=== PATIENT | male | born 2000 | race Caucasian/White ===

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

== ENCOUNTER 2022-01-22 16:46 | Emergency (ER) | payer OTHER, SELFPAY ==
[2022-01-22 16:59] VITALS: BP 109/67; PULSE 84; RESP 20; TEMP 36.9; O2SAT 100
--- NOTE | 2022-01-22 17:39 | ED.SKABFB ---
HPI - Skin/Abscess/Foreign Bdy General Chief complaint: Skin/Abscess/Foreign Body Stated complaint: SUNBURN Time Seen by Provider: 01/22/22 17:39 Source: patient and RN notes reviewed Mode of arrival: ambulatory Limitations: no limitations History of Present Illness HPI narrative: 21-year-old male presents with concern for sunburn and possible sun poisoning. He reports over the weekend he was sunburn and he now has a red painful rash to his nose. He denies any drainage from his nose, any other rash. He denies fever, body aches, chills, sweats. He denies intervention. complaint: rash Related Data Home Medications Medication Instructions Recorded Confirmed sulfamethoxazole 800 1 tablet PO DAILY 12/11/21 12/11/21 mg-trimethoprim 160 mg tablet Allergies Allergy/AdvReac Type Severity Reaction Status Date / Time No Known Allergies Allergy Verified 12/11/21 14:07 Review of Systems Review of Systems: CONSTITUTIONAL: Denies malaise, chills, sweats, or fever. ENT: Denies rhinorrhea, congestion, sinus pain, otalgia or sore throat. CARDIOVASCULAR: Denies chest pain, palpitations, or edema. RESPIRATORY: Denies cough or dyspnea. GASTROINTESTINAL: Denies nausea, vomiting. SKIN: Reports an uncomfortable rash to the nose MUSCULOSKELETAL: Denies myalgia. NEUROLOGIC: Denies headache. All systems reviewed & are unremarkable except as noted in HPI and below PMFSH Comments At time of signature, agree with nursing past medical, surgical, social and family history. There is no relevant family history pertinent to the presenting complaint Exam Narrative: GENERAL: Well-appearing, well-nourished, and in no acute distress. HEAD: Normocephalic, atraumatic. EYES: PERRLA, conjunctivae clear, and EOMI. ENT: Mucous membranes moist. Oropharynx without edema, erythema or lesions. TM pearly crocker with sharp light reflex NECK: Supple. No lymphadenopathy CHEST: Clear to auscultation. No respiratory distress. HEART: Regular rate and rhythm. SKIN: Warm, dry. Erythematous papular rash noted to the nose and parallel bilaterally. No fluctuation, drainage noted NEURO: Alert and oriented x3. PSYCH: Normal mood and affect Course Course Emergency Course: Patient is aware of diagnosis, understands and agrees to treatment plan. Anticipatory guidance given. Patient agrees to follow-up as directed and is aware of reasons to seek care at the emergency department. Portions of this record may have been created with voice recognition software Level of Care: Express Care Visit Vital Signs Vital signs: Vital Signs Temperature 98.5 F 01/22/22 16:59 Pulse Rate 84 01/22/22 16:59 Respiratory Rate 20 01/22/22 16:59 Blood Pressure 109/67 01/22/22 16:59 Pulse Oximetry 100 01/22/22 16:59 Temperature 98.5 F 01/22/22 16:59 Pulse Rate 84 01/22/22 16:59 Respiratory Rate 20 01/22/22 16:59 Blood Pressure 109/67 01/22/22 16:59 Pulse Oximetry 100 01/22/22 16:59 Reviewed. MDM - Skin/Abscess/Foreign Bdy MDM Narrative Medical decision making narrative: Does not appear at this time to be erythema multiforme, bullous, SJS, TEN; no evidence at this time to suggest RMSF, endocarditis or Lyme disease; patient looks well, nontoxic and is tolerating oral intake; no neurologic signs or symptoms; no headache, photophobia or neck pain; afebrile; appropriate for initial outpatient treatment; discussed the importance of follow-up, patient agrees; question, viral exanthema, contact dermatitis, allergic dermatitis, eczema, urticaria, cellulitis, soft tissue infection, abscess. No soft palate or uvula edema, no tongue, lip edema or other mucosal involvement, no respiratory compromise, no stridor, no wheezing, no wheezing, no history of syncope, no hypotension, no nausea, vomiting, or diarrhea. Instructed patient to go to nearest ER immediately for any worsening symptoms including but not limited to: fever, spreading rash, pain, sore throat
== END 2022-01-22 17:59 | disposition home or self-care (01) ==
PROVIDERS: Emergency Provider Nurse Practitioner
DX: L55.1 Sunburn of second degree (principal)
CPT/HCPCS: 99213; G0463

== ENCOUNTER 2022-01-24 21:02 | Emergency (ER) | payer OTHER, SELFPAY ==
[2022-01-24 21:06] VITALS: BP 130/73; PULSE 80; RESP 20; TEMP 36.6; O2SAT 100
--- NOTE | 2022-01-24 23:07 | ED.SKABFB ---
HPI - Skin/Abscess/Foreign Bdy General Chief complaint: Skin/Abscess/Foreign Body Stated complaint: abscess to face Time Seen by Provider: 01/24/22 21:41 History of Present Illness HPI narrative: Patient is a 21-year-old male who presents ER for evaluation of possible infection to his nose and cheek. Patient was seen a couple days ago and diagnosed with a sunburn to his nose and placed on silver sulfadiazine. Reports there has become scabbed and more red and swollen. Not particular tender. No difficulty breathing. Reports he is getting some swelling up into his eye as well. Related Data Home Medications Medication Instructions Recorded Confirmed sulfamethoxazole 800 1 tablet PO DAILY 12/11/21 12/11/21 mg-trimethoprim 160 mg tablet Allergies Allergy/AdvReac Type Severity Reaction Status Date / Time No Known Allergies Allergy Verified 12/11/21 14:07 Review of Systems Review of Systems: All systems reviewed & are unremarkable except as noted in HPI and below Constitutional: Constitutional: Denies chills and Denies fever(s) ENT: Denies nasal congestion and Denies sore throat Integumentary/Breasts: Skin/Breast: Denies pruritus, Reports erythema and Reports rash Comments: Scabbing to the nose PMFSH Past Medical History Medical History (Updated 01/24/22 @ 23:13 by Max Wakefield MD) Healthy adult male Surgical History Surgical History (Updated 01/24/22 @ 23:13 by Max Wakefield MD) No history of previous surgery Social History Social History (Updated 01/24/22 @ 23:13 by Max Wakefield MD) Smoking status: Never smoker Exam Narrative: GENERAL: Well-appearing, well-nourished, and in no acute distress. HEAD: Normocephalic, atraumatic. ENT: Nares clear, no rhinorrhea or epistaxis. Mucous membranes moist. SKIN: Warm, dry. There is erythema of the nose and left cheek with swelling of the skin and nasolabial fold. There is scabbing across the bridge of the nose and moving into the left cheek. NEURO: Alert and oriented x3. PSYCH: Normal mood and affect. Course Course Emergency Course: Patient has shown me photos on his phone with progress noted of the rash. It appears to start as little pustules and since progressed. Suspect infection related to freshwater exposure while he was at [facility]. Discussed discontinuation of silver sulfadiazine. Will treat with cephalexin and topical mupirocin. Recommend follow-up with PCP or his school nurse. He is verbalized understanding of this. Vital Signs Vital signs: Vital Signs Temperature 97.8 F 01/24/22 21:06 Pulse Rate 80 01/24/22 21:06 Respiratory Rate 20 01/24/22 21:06 Blood Pressure 130/73 01/24/22 21:06 Pulse Oximetry 100 01/24/22 21:06 Oxygen Delivery Room Air 01/24/22 21:06 Temperature 97.8 F 01/24/22 21:06 Pulse Rate 80 01/24/22 21:06 Respiratory Rate 20 01/24/22 21:06 Blood Pressure 130/73 01/24/22 21:06 Pulse Oximetry 100 01/24/22 21:06 Oxygen Delivery Room Air 01/24/22 21:06 Discharge Plan Discharge Clinical Impression: Cellulitis Patient Disposition: Home, Self-Care Condition: Stable Instructions: Cellulitis (ED) Additional Instructions: You have a skin infection of your face that was likely caused by exposure to fresh water. Take the oral antibiotic 4 times daily and apply topical antibiotic. Return the ER if your swelling is worsening, you cannot see, you have severe facial pain, you have additional concerns. Prescriptions: New cephalexin 500 mg capsule 500 mg PO Q6H 10 Days Qty: 40 0RF mupirocin 2 % ointment 1 applic topical TID Qty: 15 0RF No Action silver sulfadiazine [Silvadene] 1 % cream 1 applic topical BID Qty: 25 0RF Rx Instructions: apply a 1.5 mm thickness sulfamethoxazole-trimethoprim 800-160 mg tablet 1 tablet PO DAILY polymyxin B sulf-trimethoprim 10,000 unit- 1 mg/mL drops 1 drp RIGHT EYE Q
[2022-01-24] MEDS: CEPHALEXIN 500 MG CAPSULE PO (23:20)
== END 2022-01-24 23:23 | disposition home or self-care (01) ==
PROVIDERS: Emergency Provider Emergency Medicine
DX: L03.211 Cellulitis of face (principal)
CPT/HCPCS: 99283; A9270

== ENCOUNTER 2022-09-27 19:15 | Emergency (ER) | payer OTHER, SELFPAY ==
--- NOTE | ~2022-09-27 | XR_ITS ---
EXAMINATION: XR wrist RT min 3V DATE: 09/27/2022 21:03 INDICATION: Right wrist pain and swelling. TECHNIQUE: 4 views of right wrist were obtained. COMPARISON: None. FINDINGS: Bone alignment is normal. No fracture. Joint spaces are well maintained. IMPRESSION: 1. Normal right wrist. Reviewed, dictated and finalized at location E. IMPRESSION: 1. Normal right wrist.
[2022-09-27 19:18] VITALS: BP 144/75; PULSE 79; RESP 16; TEMP 36.9; O2SAT 100
[2022-09-27] MEDS: IBUPROFEN 600 MG TABLET PO (20:53)
[2022-09-27] MEDS: CYCLOBENZAPRINE HCL 10 MG TABLET PO (20:54)
--- NOTE | 2022-09-27 20:59 | ED.EXTPRO ---
HPI - Extremity Problem General Chief complaint: Extremity Problem,Nontraumatic <KARAN Ring Last Filed: 09/28/22 04:06> Stated complaint: right wrist pain <KARAN Ring Filed: 09/28/22 04:06> Time Seen by Provider: 09/27/22 20:38 <KARAN Ring Last Filed: 09/28/22 04:06> History of Present Illness HPI Narrative: 22-year-old male reports for evaluation of right dorsal wrist pain that started yesterday. Patient states the pain started as a dull ache on the dorsal aspect of his distal radius yesterday, states today while he was at work and raking, he felt a sharp pain in the same area and then developed swelling. He has full range of motion of his wrist and fingers. Denies erythema or warmth, fever, body aches or chills, known trauma or paresthesias. <KARAN Ring Filed: 09/28/22 04:06> Related Data Home medications: Home Medications Medication Instructions Recorded Confirmed sulfamethoxazole 800 1 tablet PO DAILY 12/11/21 12/11/21 mg-trimethoprim 160 mg tablet <KARAN Ring Filed: 09/28/22 04:06> Allergies/Adverse reactions: Allergies Allergy/AdvReac Type Severity Reaction Status Date / Time No Known Allergies Allergy Verified 12/11/21 14:07 <KARAN Ring Last Filed: 09/28/22 04:06> Review of Systems Review of Systems: CONSTITUTIONAL: Denies fever, chills EYES: Denies visual changes, redness, or discharge. ENT: Denies rhinorrhea, congestion, sore throat, or otalgia. CARDIOVASCULAR: Denies chest pain, palpitations, or edema. RESPIRATORY: Denies cough or dyspnea. GASTROINTESTINAL: Denies abdominal pain, nausea, vomiting, or diarrhea. GENITOURINARY: Denies dysuria or hematuria. SKIN: Denies rash or itching. MUSCULOSKELETAL: See HPI NEUROLOGIC: Denies headache, numbness, dizziness, or weakness. PSYCHIATRIC: Denies anxiety or depression. <KARAN Ring Filed: 09/28/22 04:06> [facility] Past Medical History Medical History: Medical History Healthy adult male <Padmaja Neumann PA-C - Last Filed: 09/28/22 04:06> Surgical History Surgical History: Surgical History No history of previous surgery <Padmaja Neumann PA-C - Last Filed: 09/28/22 04:06> Social History Social History: Social History Smoking status: Never smoker <Padmaja Neumann PA-C - Last Filed: 09/28/22 04:06> Exam Narrative: GENERAL: Well-appearing, in no acute distress. HEAD: Normocephalic NECK: Supple. CHEST: No respiratory distress. Clear to auscultation, no adventitious breath sounds. HEART: Regular rate and rhythm. No murmur heard. Normal peripheral pulses. EXTREMITIES: RUE: Tenderness to the distal radius along the dorsal aspect with mild amount of edema. No tenderness to remaining upper extremity. No snuffbox tenderness. Full range of motion of wrist and fingers. Radial pulse 2+. Sensation intact. Cap refill less than 2. No overlying skin changes, erythema or warmth to the joint. SKIN: Warm, dry, no rash. NEURO: No focal deficits. Alert and oriented x3. PSYCH: Normal mood and affect. 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 I performed all aspects of the MDM as documented w/ the following additions: 22-year-old presenting with wrist pain. X-rays were negative for Osseous injury. Patient was discharged with follow-up.All questions answered. Patient in agreement w/ disposition. <Saulo Juares MD - Last Filed: 10/08/22 20:51> Vital Signs Vital signs: Vital Signs Temperature 98.4 F 09/27/22 19:18 Pulse Rate 79 09/27/22 19:18 Respiratory Rate 16
[2022-09-27 21:39] VITALS: BP 109/64; PULSE 65; RESP 17; O2SAT 98
== END 2022-09-27 21:40 | disposition home or self-care (01) ==
PROVIDERS: Emergency Provider Physician Assistant
DX: S66.911A Strain of unspecified muscle, fascia and tendon at wrist and hand level, right hand, initial encounter (principal); X50.3XXA Overexertion from repetitive movements, initial encounter
CPT/HCPCS: 73110; 99283; A9270

== ENCOUNTER 2022-10-01 16:41 | Emergency (ER) | payer OTHER, SELFPAY ==
[2022-10-01 17:00] VITALS: BP 114/80; PULSE 74; RESP 16; TEMP 37.2; O2SAT 99
--- NOTE | 2022-10-01 17:19 | ED.EYEPROB ---
HPI - Eye Problem General Chief complaint: Eye Problems Stated complaint: Eye Problem Time Seen by Provider: 10/01/22 17:14 History of Present Illness HPI Narrative: Pt presents with right eye redness for two days. Pt denies FB or injury. Pt says he has a history of similar at this time of year and has been told it is bacterial and also either viral or allergic. Pt denies mattering or pain or photophobia. Related Data Home Medications Medication Instructions Recorded Confirmed sulfamethoxazole 800 1 tablet PO DAILY 12/11/21 12/11/21 mg-trimethoprim 160 mg tablet Allergies Allergy/AdvReac Type Severity Reaction Status Date / Time No Known Allergies Allergy Verified 12/11/21 14:07 Review of Systems Review of Systems: All systems reviewed & are unremarkable except as noted in HPI and below PMFSH Past Medical History Medical History Healthy adult male Surgical History Surgical History No history of previous surgery Social History Social History Smoking status: Never smoker Exam Const: General: healthy appearing Nutritional Appearance: well nourished Orientation/consciousness: patient oriented x3 Limitations: no limitations Other: tetracaine and fluoresceine applieed to right eye. no fb or abrasion noted Eyes: Conjunctivae: conjunctival abnormality (injected and mild erythema but no purulent discharge.) right Pupils: Equal, round and reactive pupils present EOM: EOMs intact bilaterally Direct Ophthalmoscopy: no photophobia Course Vital Signs Vital signs: Vital Signs Temperature 98.9 F 10/01/22 17:00 Pulse Rate 74 10/01/22 17:00 Respiratory Rate 16 10/01/22 17:00 Blood Pressure 114/80 10/01/22 17:00 Pulse Oximetry 99 10/01/22 17:00 Oxygen Delivery Room Air 10/01/22 17:00 Temperature 98.9 F 10/01/22 17:00 Pulse Rate 74 10/01/22 17:00 Respiratory Rate 16 10/01/22 17:00 Blood Pressure 114/80 10/01/22 17:00 Pulse Oximetry 99 10/01/22 17:00 Oxygen Delivery Room Air 10/01/22 17:00 Discharge Plan Discharge Clinical Impression: Bacterial conjunctivitis Patient Disposition: Home, Self-Care Condition: Stable Instructions: Antibiotic Form Prescriptions: New gentamicin 0.3 % drops 1 drp RIGHT EYE Q4H Qty: 5 0RF Zerviate 0.24 % dropperette 1 drp RIGHT EYE BID Qty: 30 0RF No Action silver sulfadiazine [Silvadene] 1 % cream 1 applic topical BID Qty: 25 0RF Rx Instructions: apply a 1.5 mm thickness sulfamethoxazole-trimethoprim 800-160 mg tablet 1 tablet PO DAILY polymyxin B sulf-trimethoprim 10,000 unit- 1 mg/mL drops 1 drp RIGHT EYE Q4HWA 7 Days Qty: 10 0RF Rx Instructions: while awake; do not exceed 6 doses in 24 hours cyclobenzaprine 15 mg capsule,extended release 24hr 15 mg PO DAILY Qty: 14 0RF ibuprofen 600 mg tablet 600 mg PO Q6H PRN (Reason: pain) Qty: 20 0RF cephalexin 500 mg capsule 500 mg PO Q6H 10 Days Qty: 40 0RF mupirocin 2 % ointment 1 applic topical TID Qty: 15 0RF Follow-up/Referrals: PHYSICIAN,[employer] [Primary Care Provider] -
== END 2022-10-01 17:57 | disposition home or self-care (01) ==
LOC: ANHED 17:35
PROVIDERS: Emergency Provider Emergency Medicine
DX: H57.89 Other specified disorders of eye and adnexa (principal)
CPT/HCPCS: 99283; A9270